=== PATIENT | female | born 1955 | race Caucasian/White ===

== ENCOUNTER 2022-06-10 10:25 | Emergency (ER) | payer BC, SELFPAY ==
[2022-06-10 10:33] VITALS: BP 138/71; PULSE 85; RESP 16; TEMP 36.9; O2SAT 98
--- NOTE | 2022-06-10 10:33 | ED.FEMALEGU ---
HPI - Female Genitourinary General Chief complaint: Urogenital-Female Stated complaint: Urinary Problem Time Seen by Provider: 06/10/22 10:33 Source: patient, RN notes reviewed and old records reviewed Mode of arrival: ambulatory Limitations: no limitations History of Present Illness HPI Narrative: 67-year-old female presents to the [facility] with frequency, urgency and discomfort with urination. States she has had suprapubic pressure. Reports a history of UTIs. Had talked to her doctor and they just called in medication last time. Related Data Home Medications Medication Instructions Recorded Confirmed alprazolam 0.5 mg tablet 0.5 mg PO QHS PRN Anxiety 05/16/22 06/10/22 aspirin 81 mg tablet,delayed 81 mg PO DAILY 05/16/22 06/10/22 release (Adult Low Dose Aspirin) cyclobenzaprine 10 mg tablet 10 mg PO TID 05/16/22 06/10/22 dulaglutide 1.5 mg/0.5 mL 1.5 mg subcut WEEKLY 05/16/22 06/10/22 subcutaneous pen injector (Trulicity) fluticasone propionate 93 1 spray intranasal Q12H 05/16/22 06/10/22 mcg/actuation breath activated aerosol (Xhance) hydrocodone 5 mg-acetaminophen 325 1 tablet PO QHS PRN Pain 05/16/22 06/10/22 mg tablet meloxicam 7.5 mg tablet 7.5 mg PO DAILY 05/16/22 06/10/22 metoprolol succinate 50 mg 50 mg PO BID 05/16/22 06/10/22 tablet,extended release 24 hr rosuvastatin 10 mg tablet 10 mg PO DAILY 05/16/22 06/10/22 venlafaxine 75 mg capsule,extended 75 mg PO DAILY 05/16/22 06/10/22 release 24 hr Allergies Allergy/AdvReac Type Severity Reaction Status Date / Time Sulfa (Sulfonamide Allergy Severe Hives Verified 06/10/22 10:39 Antibiotics) Review of Systems Review of Systems: All systems reviewed & are unremarkable except as noted in HPI and below Constitutional: Constitutional: Reports no additional constitutional complaints, Denies chills and Denies fatigue Eyes: Eyes: Reports no additional eye complaints ENT: Reports system reviewed and no additional complaints, except as documented Cardiovascular: Cardiovascular: Reports no additional cardiovascular complaints Respiratory: Respiratory: Reports no additional respiratory complaints Gastrointestinal: Gastrointestinal: Reports no additional gastrointestinal complaints, Denies abdominal pain, Denies diarrhea, Denies nausea and Denies vomiting Genitourinary: Genitourinary: Reports as per HPI (Frequent urination), Reports hematuria, Reports dysuria, Denies flank pain and Denies vaginal discharge Musculoskeletal: Musculoskeletal: Reports no additional musculoskeletal complaints and Denies back pain Integumentary/Breasts: Skin/Breast: Reports system reviewed and no additional complaints, except as docu Neurologic: Reports system reviewed and no additional complaints, except as documented Psychiatric: Psychiatric: Reports no additional psychiatric complaints Endocrine: Endocrine: Denies fatigue Allergic/Immunologic: Allergic/Immunologic: Reports no additional allergic/immunologic complaints PMFSH Past Medical History Medical History Asthma Diabetes High blood pressure High cholesterol Surgical History Surgical History H/O knee surgery H/O sinus surgery History of carpal tunnel surgery History of tubal ligation Family History Family History Other Breast cancer Cerebrovascular accident Diabetes mellitus Heart disease Malignant neoplasm of prostate Social History Social History Smoking packs per day: 1 Smoking cigarettes per day: 20.0 Smoking status: Never smoker Tobacco type: cigarettes Alcohol intake: current Substance use: never Substance use type: does not use Gender identity (if verbalized by the patient): Female Sexual Orientation (if Verbalized by the Patient): Str
[2022-06-10 10:48] VITALS: BP 138/71; PULSE 85; RESP 16; TEMP 36.9; O2SAT 98
[2022-06-10 11:00] LABS: Glucose Point of Care 155 mg/dl (65-105)
== END 2022-06-10 11:06 | disposition home or self-care (01) ==
PROVIDERS: Emergency Provider Nurse Practitioner; PCP Internal Medicine
DX: N39.0 Urinary tract infection, site not specified (principal); J45.909 Unspecified asthma, uncomplicated; E11.9 Type 2 diabetes mellitus without complications; I10 Essential (primary) hypertension; E78.00 Pure hypercholesterolemia, unspecified
CPT/HCPCS: 81003; 82948; 87086; 87088; 99213; G0463